=== PATIENT | female | born 1960 ===

== ENCOUNTER 2020-08-22 13:50 | Emergency (ER) | payer OTHER, SELFPAY ==
[2020-08-22 14:03] VITALS: BP 117/75; PULSE 90; RESP 16; TEMP 36.4; O2SAT 99
--- NOTE | 2020-08-22 14:13 | ECG_ITS ---
Measurements Intervals [place] Rate: 91 P: 61 VA: 145 QRS: -19 QRSD: 93 T: 53 QT: 352 QTc: 434 Interpretive Statements SINUS RHYTHM DELAYED PRECORDIAL R/S TRANSITION LOW QRS VOLTAGE IN PRECORDIAL LEADS BORDERLINE ECG Electronically Signed On 08-23-2020 7:45:11 CDT by Jase Ramirez D.O.
--- NOTE | 2020-08-22 14:20 | ED.GENADULT ---
HPI - General Adult General Chief complaint: Unspecified Stated complaint: dizziness Source: patient and RN notes reviewed Limitations: no limitations History of Present Illness HPI narrative: The vaccinated patient, a non-smoker/nondrinker previously mostly healthy on no meds-yet without doctor, presents for diabetic check and lightheadedness. Patient states she has a family history of diabetes-so wants blood sugar check, and has had foamy urine and lightheadedness for least a week. No fever, head?chest?abdominal pain, vomiting/diarrhea/dehydration, bleeding, frequency/urgency/dysuria, chest pain, palpitation, true vertigo, hearing loss, earache, lateralizing weakness,presyncope, weakness-but she has some chronic R>>L foot numbness. Vital signs are stable with heart rate in the 80s?90s, urinalysis remarkable for microscopic hematuria, fingerstick glucose about 120 ; patient advised go to hospital-that she declines Related Data Allergies Allergy/AdvReac Type Severity Reaction Status Date / Time amoxicillin [From Amoxil] AdvReac Other Verified 08/22/20 14:21 Review of Systems Review of Systems: Narrative: General/Constitutional: No weight loss,fever Eyes: N0: Redness,discharge Ears/Nose/Throat: No: Epistaxis,ear discharge Respiratory: Denies: Hemoptysis Gastrointestinal: No Vomiting, Bleeding-rectal Skin: No Lumps, eruption Neurologic: No Focal Weakness,Sz Hematologic: Denies: Petechiae/Purpura Psychiatric: No: Suicida ideationl All Other Systems: Reviewed and Negative [facility] Social History Social History Gender identity (if verbalized by the patient): Female Comments At time of signature, agree with nursing past medical, surgical, social and family history. There is no relevant family history pertinent to the presenting complaint Exam Narrative: Exam Narrative: General Appearance: Well appearing, No distress EYE: PERRLA, Conjunctiva clear Ears: External ear normal Nose: Normal nose Mouth/Throat: Normal appearing, Normal lips Neck: Supple Respiratory: Airway patent, No respiratory distress Cardiovascular: RRR Abdomen: Soft, Non-tender, No massess, No organomegaly Musculoskeletal: Full ROM Skin: Warm, Dry Neurological: A&O x3, CN II-X intact Psychiatric: Normal mood, Normal affect Course Course Emergency Course: EKG sinus rhythm at 90, CT 0.145, QRS 0.09, QTc 0.40 axis -20, no ST changes/STEMI Vital Signs Vital signs: Vital Signs Temperature 97.6 F 08/22/20 14:03 Pulse Rate 90 08/22/20 14:03 Respiratory Rate 16 08/22/20 14:03 Blood Pressure 117/75 08/22/20 14:03 Pulse Oximetry 99 08/22/20 14:03 Temperature 97.6 F 08/22/20 14:03 Pulse Rate 90 08/22/20 14:03 Respiratory Rate 16 08/22/20 14:03 Blood Pressure 117/75 08/22/20 14:03 Pulse Oximetry 99 08/22/20 14:03 Medical Decision Making Vital Signs Vital Signs: Vital Signs Temperature 97.6 F 08/22/20 14:03 Pulse Rate 90 08/22/20 14:03 Respiratory Rate 16 08/22/20 14:03 Blood Pressure 117/75 08/22/20 14:03 Pulse Oximetry 99 08/22/20 14:03 Temperature 97.6 F 08/22/20 14:03 Pulse Rate 90 08/22/20 14:03 Respiratory Rate 16 08/22/20 14:03 Blood Pressure 117/75 08/22/20 14:03 Pulse Oximetry 99 08/22/20 14:03 Lab Data Labs: Lab Results 08/22/20 Range/Units 14:17 POC Capillary Glucose 112 H (65-105) mg/dl Urine Glucose Negative Reference Range: Negative Urine Bilirubin Negative Reference Range: Negative Urine Ketone Negative Reference Range: Negative Urine Specific [place] 1.025 Reference Range:1.001-1.035 Urine Blood 3+
[2020-08-22 14:22] LABS: Glucose Point of Care 112 mg/dl (65-105)
== END 2020-08-22 14:58 | disposition home or self-care (01) ==
PROVIDERS: Emergency Provider Emergency Medicine
DX: R42 Dizziness and giddiness (principal); R31.29 Other microscopic hematuria; K21.9 Gastro-esophageal reflux disease without esophagitis
CPT/HCPCS: 81003; 82948; 87086; 93005; 99213; G0463